=== PATIENT | female | born 1985 | race Two or more races ===

== ENCOUNTER 2019-08-28 20:39 | Emergency (ER) | payer OTHER ==
[~2019-08-28] VITALS: Ht 157.5 cm; Wt 94.8 kg
--- NOTE | 2019-08-28 20:41 | NUR ---
PT AAOX4. AMBULATORY, BIBRA C/O N/V 15 MINS [employer] [facility]. PT STATED SHE WAS DRIVING AND STARTED TO FEEL NAUSEOUS AND VOMITING. VSS. PT CONTINUIOUSLTY VOMITJING. DIAPHORETIC, RR EVEN AND UNLABORED.
[2019-08-28] MEDS ORDERED: ONDANSETRON HCL/PF 4 MG/2 ML VIAL ONE (20:49)
[2019-08-28] MEDS: IV NS 0.9% 1,000 ML BAG IV ONE (20:57)
[2019-08-28] MEDS ORDERED: DIAZEPAM 5 MG/ML 2 ML DISP.SYRIN IV ONE (21:00)
[2019-08-28] MEDS: ONDANSETRON HCL/PF 4 MG/2 ML VIAL IV ONE (21:00)
[2019-08-28 21:01] LABS: BASOPHILS # (AUTO) 0.2 /CMM (0.0-0.2); BASOPHILS % (AUTO) 0.8 % (0.0-2.0); EOSINOPHILS % (AUTO) 2.3 % (0.0-6.0); HEMATOCRIT 50 % (33-45); HEMOGLOBIN 16.3 g/dL (11.5-14.8); LYMPHOCYTES # (AUTO) 7.7 /CMM (0.8-4.8); LYMPHOCYTES % (AUTO) 33.3 % (20.0-44.0); MEAN CORPUSCULAR HGB CONC 33 g/dl (31.0-36.0); MEAN CORPUSCULAR VOLUME 89 fL (82-100); MONOCYTES # (AUTO) 1.7 /CMM (0.1-1.30); MONOCYTES % (AUTO) 7.4 % (2.0-12.0); NEUTROPHILS % (AUTO) 56.2 % (43.0-81.0); PLATELET COUNT (AUTO) 333 /CMM (150-450); RED BLOOD CELL COUNT(AUTO) 5.57 MIL/uL (4.0-5.2)
[2019-08-28 21:22] LABS: ALBUMIN 3.5 g/dL (3.4-5.0); BILIRUBIN,TOTAL 0.5 mg/dL (0.2-1.0); TOTAL PROTEIN, SERUM 8.6 g/dL (6.4-8.2)
--- NOTE | 2019-08-28 21:22 | NUR ---
PT VOMITING STILL. VSS.
[2019-08-28] MEDS ORDERED: DIAZEPAM 5 MG TABLET ONE (21:25)
[2019-08-28] MEDS: DIAZEPAM 5 MG TABLET PO ONE (21:29)
[2019-08-28 21:41] LABS: EOSINOPHILS % (MANUAL) 1 % (0-4); LYMPHOCYTES % (MANUAL) 42 % (16-48); MONOCYTES % (MANUAL) 6 % (0-11.0); NEUTROPHILS % (MANUAL) 51 (42-76)
[2019-08-28 21:47] LABS: BILIRUBIN,DIRECT 0.1 mg/dL (0.0-0.2)
[2019-08-28] MEDS ORDERED: METOCLOPRAMIDE HCL 10 MG/2 ML VIAL ONE (21:47)
[2019-08-28 21:48] LABS: CALCIUM, SERUM 9.6 mg/dL (8.5-10.1)
[2019-08-28 21:51] LABS: CREATININE 0.9 mg/dL (0.6-1.3)
[2019-08-28 21:54] LABS: POTASSIUM 3.1 mmol/L (3.5-5.1)
--- NOTE | 2019-08-28 21:54 | NUR ---
US AT BEDSIDE
[2019-08-28] MEDS: METOCLOPRAMIDE HCL 10 MG/2 ML VIAL IV ONE (21:55)
--- NOTE | 2019-08-28 21:55 | NUR ---
AWAITING URINE SAMPLE. PT STATING UNABLE TO URINATE.
[2019-08-28 22:02] LABS: ALCOHOL, BLOOD < 3 mg/dL (0-0); LIPASE 148 U/L (73-393)
--- NOTE | 2019-08-28 22:12 | NUR ---
AMBULATED TO THE RESTROOM WITH THE HELP OF EMT
--- NOTE | 2019-08-28 22:21 | NUR ---
URINE SENT TO LAB
[2019-08-28 22:28] LABS: APPEARANCE,URINE Clear (CLEAR); BILIRUBIN,URINE Negative (NEGATIVE); BLOOD, URINE Negative Ery/uL (NEGATIVE); COLOR,URINE Yellow (YELLOW); KETONES,URINE Negative (NEGATIVE); LEUKOCYTE ESTERASE ,URINE Trace (NEGATIVE); NITRITE, URINE Negative (NEGATIVE); PH,URINE 8.5 (5.0-8.0); PROTEIN,URINE 30 mg/dl (NEGATIVE); UGLUCOSE Negative (NEGATIVE)
--- NOTE | 2019-08-28 22:43 | NUR ---
Patient is resting comfortably in bed with eyes closed. Easily aroused. VSS.
[2019-08-28 22:49] LABS: BACTERIA,URINE Few /HPF (None Seen); MUCUS,URINE Few /LPF (None Seen); RBC,URINE 0-2 /HPF (0-2); SQUAMOUS EPITHELIAL CELL,UR Few /HPF (None Seen)
--- NOTE | 2019-08-28 23:45 | NUR ---
40MEQ K PER PA VERBAL
[2019-08-29 00:11] LABS: BASOPHILS # (AUTO) 0.1 /CMM (0.0-0.2); BASOPHILS % (AUTO) 0.4 % (0.0-2.0); EOSINOPHILS % (AUTO) 0.1 % (0.0-6.0); HEMATOCRIT 46 % (33-45); HEMOGLOBIN 15.5 g/dL (11.5-14.8); LYMPHOCYTES # (AUTO) 1.5 /CMM (0.8-4.8); MEAN CORPUSCULAR HGB CONC 33 g/dl (31.0-36.0); MEAN CORPUSCULAR VOLUME 89 fL (82-100); MONOCYTES # (AUTO) 0.8 /CMM (0.1-1.30); MONOCYTES % (AUTO) 3.9 % (2.0-12.0); NEUTROPHILS # (AUTO) 19.3 /CMM (1.8-8.9); NEUTROPHILS % (AUTO) 88.6 % (43.0-81.0); PLATELET COUNT (AUTO) 237 /CMM (150-450); RED BLOOD CELL COUNT(AUTO) 5.18 MIL/uL (4.0-5.2); WHITE BLOOD COUNT (AUTO) 21.7 K/uL (4.3-11.0)
--- NOTE | 2019-08-29 00:18 | NUR ---
brought to ct and back
--- NOTE | 2019-08-29 01:06 | NUR ---
Patient is resting comfortably in bed. Easily aroused. VSS.
[2019-08-29] MEDS ORDERED: POTASSIUM CHLORIDE 20 MEQ TAB.PRT.SR PO ONE (01:50)
[2019-08-29] MEDS: POTASSIUM CHLORIDE 20 MEQ TAB.PRT.SR PO ONE (02:03)
--- NOTE | 2019-08-29 02:32 | NUR ---
IV removed. Catheter intact and site benign. Pressure and 4x4 applied to site. No bleeding noted.
--- NOTE | 2019-08-29 02:32 | NUR ---
Patient discharged to home in stable condition. Written and verbal after care instructions given. Patient verbalizes understanding of instruction and RX. Pt picked up by brother. HARRY.
[2019-08-29 02:33] VITALS: BP 139/77
== END 2019-08-29 02:34 | disposition home or self-care (01) ==
LOC: ER 20:42
DX: H81.10 Benign paroxysmal vertigo, unspecified ear (principal); R11.2 Nausea with vomiting, unspecified; E66.9 Obesity, unspecified; Z68.38 Body mass index [BMI] 38.0-38.9, adult
CPT/HCPCS: 36415; 70450; 76705; 80048; 80076; 80305; 80307; 81001; 82962; 83690; 84702; 84703; 85025 ×2; 87086; 96361; 96374; 96375; 99285; J2405; J2765; J7030; 81000-TC; G0480